=== PATIENT | male | born 1935 | race African-American/Black ===

== ENCOUNTER 2023-06-21 18:14 | Emergency (ER) | payer OTHER ==
[~2023-06-21] VITALS: Ht 172.7 cm; Wt 76.2 kg
[2023-06-21] MEDS ORDERED: HYDREA500 M1 PO (18:33)
[2023-06-21] MEDS ORDERED: LOTREL 10-40 M1 EACH PO (18:33)
[2023-06-21 21:42] LABS: HEMATOCRIT 41.1 % (39.0-48.0); HEMOGLOBIN 13.6 g/dL (13-16.00); MEAN CELL VOLUME 96.2 fL (80.0-100.00); MEAN CORPUSCULAR HEMOGLOBIN 31.7 pg (27.00-32.0); PLATELET COUNT 787 K/uL (150-450); RED BLOOD COUNT 4.27 M/uL (4.00-6.00); RED CELL DISTRIBUTION WIDTH 14.6 % (11.5-14.5)
[2023-06-21] MEDS ORDERED: NASAL MIST126 ML NASAL (22:35)
[2023-06-21] MEDS ORDERED: ZYRTEC10 M3 PO (22:35)
[2023-06-21] MEDS ORDERED: MUCINEX DM ER1 EACH PO (22:35)
== END 2023-06-21 22:46 | disposition home or self-care (01) ==
LOC: ER 18:15
PROVIDERS: Nurse Practitioner Family
DX: J00 Acute nasopharyngitis [common cold] (principal); I10 Essential (primary) hypertension; Z20.822 Contact with and (suspected) exposure to COVID-19